=== PATIENT | female | born 1970 ===

== ENCOUNTER 2017-01-26 09:25 | Emergency (ER) | payer MEDICAID ==
[2017-01-26 09:29] VITALS: BMI 36.0
--- NOTE | 2017-01-26 09:50 | ED PDOC ---
HPI: Headache Time Seen by Provider: 01/26/17 09:33 Chief Complaint (Nursing): Headache Chief Complaint (Provider): Headache History Per: Patient History/Exam Limitations: no limitations Onset/Duration Of Symptoms: Days (Worse over 2 days) Additional Complaint(s): Patient is a 46 year old female with history of hypertension complaining of a chronic headache that has worsened over the last two days. Patient denies dizziness, chest pain, and shortness of breath. Of note, patient has not been on her blood pressure medication since July due to the loss of her insurance. PCP: none provided Past Medical History Reviewed: Historical Data, Nursing Documentation, Vital Signs Vital Signs: Last Vital Signs Temp 98 F 01/26/17 09:29 Pulse 80 01/26/17 09:29 Resp 18 01/26/17 09:29 BP 190/121 H 01/26/17 09:29 Pulse Ox 99 01/26/17 09:29 - Medical History PMH: Arthritis, Asthma, Hepatitis (B), HTN Denies: Chronic Kidney Disease - Surgical History Surgical History: Tonsillectomy - Family History Family History: States: Unknown Family Hx - Immunization History Hx Influenza Vaccination: Yes (up to date) Hx Pneumococcal Vaccination: Yes (up to date) - Home Medications Home Medications: Ambulatory Orders Medication Instructions Recorded hydroCHLOROthiazide [Microzide] 12.5 mg PO DAILY 11/21/15 Albuterol HFA [Ventolin HFA 90 2 puff IH [id number] PRN #1 bottle 12/19/15 mcg/actuation (8 g)] Albuterol HFA [Ventolin HFA 90 2 puff IH Q4H #1 puff 05/21/16 mcg/actuation (8 g)] Azithromycin [Zithromax] 250 mg PO DAILY #6 tab 05/21/16 predniSONE [predniSONE Tab] 10 mg PO TID #15 tab 05/21/16 Enalapril Maleate [Vasotec] 10 mg PO DAILY #30 tab 01/26/17 - Allergies Allergies/Adverse Reactions: Allergies Allergy/AdvReac Type Severity Reaction Status Date / Time Penicillins Allergy RASH Verified 01/26/17 09:43 Review of Systems ROS Statement: Except As Marked, All Systems Reviewed And Found Negative Cardiovascular: Negative for: Chest Pain Respiratory: Negative for: Shortness of Breath Neurological: Positive for: Headache. Negative for: Dizziness Physical Exam - Reviewed Nursing Documentation Reviewed: Yes Vital Signs Reviewed: Yes - Physical Exam Appears: Positive for: Well, Non-toxic, No Acute Distress Head Exam: Positive for: ATRAUMATIC, NORMAL INSPECTION, NORMOCEPHALIC Skin: Positive for: Normal Color, Warm, DRY Eye Exam: Positive for: EOMI, Normal appearance, PERRL ENT: Positive for: Normal ENT Inspection Neck: Positive for: Normal, Painless ROM Cardiovascular/Chest: Positive for: Regular Rate, Rhythm Respiratory: Positive for: CNT, Normal Breath Sounds Gastrointestinal/Abdominal: Positive for: Normal Exam, Bowel Sounds, Soft. Negative for: Tenderness Extremity: Positive for: Normal ROM Neurologic/Psych: Positive for: Alert, Oriented - ECG O2 Sat by Pulse Oximetry: 99 (RA) Pulse Ox Interpretation: Normal Medical Decision Making Medical Decision Making: Initial Plan: * ECG * Urinalysis * urine * Clonidine 0.2 mg PO * reevaluation Scribe Attestation: Documented by Isela Thomas, acting as a scribe for Iraj Rand MD. Provider Scribe Attestation: All medical record entries made by the Scribe were at my direction and personally dictated by me. I have reviewed the chart and agree that the record accurately reflects my personal performance of the history, physical exam, medical decision making, and the department course for this patient. I have also personally directed, reviewed, and agree with the discharge instructions and disposition. Disposition - Clinical Impression Clinical Impression: Hypertension - Patient ED Disposition Is Patient to be Admitted: No Counseled Patient/Family Regarding: Studies Performed, Diagnosis, Need For Followup, Rx Given - Disposition Referrals: [facility] [Outside] Disposition: Routine/Home Disposition Time: 11:40 Condition: FAIR Prescriptions: Enalapril Maleate [Vasotec] 10 mg PO DAILY #30 tab Instructions: Hypertension (ED) Print Language: LIBYAN
[2017-01-26 12:27] VITALS: BP 132/74; PULSE 78; RESP 19; TEMP 98.6; O2SAT 100
--- NOTE | 2017-01-27 13:52 | CARD ---
APPROVED REPORT EKG Measurement Heart [id number] ME 128P9 [id number] <Conclusion> Normal sinus rhythm Moderate voltage criteria for LVH, may be normal variant Nonspecific T wave abnormality Abnormal ECG
== END 2017-01-26 12:27 | disposition home or self-care (01) ==
LOC: H.ER 09:25
DX: I10 Essential (primary) hypertension (principal); Z88.0 Allergy status to penicillin

== ENCOUNTER 2017-03-14 10:10 | Inpatient (IN) | payer MEDICAID ==
[2017-03-14 10:14] VITALS: BMI 41.1
--- NOTE | 2017-03-14 10:54 | ED PDOC ---
HPI: General Adult Time Seen by Provider: 03/14/17 10:51 Chief Complaint (Nursing): Dizziness/Lightheaded Chief Complaint (Provider): dizzy History Per: Patient, Playground Worker (Emma Segura RN at bedside for belizean translation) Additional Complaint(s): 46-year-old female with history of hypertension presents to emergency department with dizziness and nausea that started yesterday. Patient denies vomiting or headache. She did not take her BP meds today, she states she came right to ED. No chest pain, SOB or VERDUGO. Past Medical History Reviewed: Historical Data, Nursing Documentation, Vital Signs Vital Signs: Last Vital Signs Temp 98 F 03/15/17 13:00 Pulse 90 03/15/17 13:00 Resp 18 03/15/17 13:00 BP 183/112 H 03/15/17 13:00 Pulse Ox 97 03/15/17 13:00 - Medical History PMH: Arthritis, Asthma, Hepatitis (B), HTN - Surgical History Surgical History: Tonsillectomy (and adenoids) Other surgeries: knee surgery - Family History Family History: States: No Known Family Hx - Living Arrangements Living Arrangements: With Family - Social History Current smoker - smoking cessation education provided: No Alcohol: Social Drugs: Denies - Home Medications Home Medications: Ambulatory Orders Medication Instructions Recorded Albuterol HFA [Ventolin HFA 90 2 puff IH Q4H PRN 03/14/17 mcg/actuation (8 g)] HCTZ/Losartan Potassium [Hyzaar 1 tab PO DAILY 03/14/17 12.5 mg-50 mg] - Allergies Allergies/Adverse Reactions: Allergies Allergy/AdvReac Type Severity Reaction Status Date / Time Penicillins Allergy RASH Verified 02/28/17 20:12 Review of Systems ROS Statement: Except As Marked, All Systems Reviewed And Found Negative Constitutional: Negative for: Fever, Chills Cardiovascular: Negative for: Chest Pain, Palpitations Respiratory: Negative for: Cough, SOB with Exertion Gastrointestinal: Positive for: Nausea. Negative for: Vomiting Neurological: Positive for: Dizziness. Negative for: Weakness, Numbness, Incoordination, Change in Speech, Altered Mental Status, Headache Physical Exam - Reviewed Nursing Documentation Reviewed: Yes Vital Signs Reviewed: Yes - Physical Exam Appears: Positive for: Well, Non-toxic, No Acute Distress Skin: Positive for: Normal Color. Negative for: Rash Eye Exam: Positive for: Normal appearance Cardiovascular/Chest: Positive for: Regular Rate, Rhythm Respiratory: Positive for: Normal Breath Sounds. Negative for: Respiratory Distress Extremity: Positive for: Normal ROM. Negative for: Pedal Edema Neurologic/Psych: Positive for: Alert, Oriented, Gait (steady). Negative for: Aphasia, Facial Droop - Laboratory Results Result Diagrams: 03/14/17 11:15 03/14/17 11:15 - ECG Interpretation Of ECG: NSR 82 bpm, LVH, reviewed by PA and ED attending. O2 Sat by Pulse Oximetry: 98 Pulse Ox Interpretation: Normal Medical Decision Making Medical Decision Makin46 year old with dizziness and nausea Plan: CBC BMP Trop EKG IVF IV zofran PO Losartan 50 mg, 12.5 mf HCTZ - patient's daily dose BP not improved at 196/105 after above meds given, clonidine 0.1 mg PO given. Repeat BP after clonidine persistently elevated at 196/116, 20 mg IV labatelol given. Case was d/w Dr. Quiroz, medicine community resource consultant. Patient admitted to telemetry to Dr. Quiroz's service. Disposition - Clinical Impression Clinical Impression: Uncontrolled hypertension - Patient ED Disposition Is Patient to be Admitted: Yes - Disposition Disposition Time: 14:09 Condition: FAIR - Pt Status Changed To: Hospital Disposition Of: Inpatient - Admit Certification Admit to Inpatient:: After my assessment, the patient will require hospitalization for at least two midnights. This is because of the severity of symptoms shown, intensity of services needed, and/or the medical risk in this patient being treated as an outpatient. - POA Present On Arrival: None Results - Lab Results Lab Results: 03/14/17 03/14/17 11:15 11:15 WBC 7.9 RBC 4.85 Hgb 14.1 Hct 42.9 MCV 88.5 MCH 29.1 MCHC 32.9 L RDW 15.7 H Plt Count 395 MPV 7.7 Neut % (Auto) 53.7 Lymph % (Auto) 29.8 Walsh % (Auto) 8.9 Eos % (Auto) 6.8 H Baso % (Auto) 0.8 Neut # 4.3 Lymph # 2.4 Walsh # 0.7 Eos # 0.5 Baso # 0.1 Sodium 137 Potassium 4.6 Chloride 103 Carbon Dioxide 25 Anion Gap 14 BUN 14 Creatinine 1.0 Est GFR ( Amer) > 60 Est GFR (Non-Af Amer) 59 Random Glucose 95 Calcium 9.2 Troponin I < 0.0120
[2017-03-14] MEDS ORDERED: Sodium Chloride 0.9% 1,000 ML IV STA (10:56)
[2017-03-14 11:24] LABS: BASO # 0.1 K/uL (0.0-0.2); BASO % 0.8 % (0.0-2.0); EOS # 0.5 K/uL (0.0-0.7); EOS % 6.8 % (0.0-4.0); HEMATOCRIT 42.9 % (34.0-47.0); LYMPH # 2.4 K/uL (1.0-4.3); LYMPH % 29.8 % (20.0-40.0); MEAN CELL VOLUME 88.5 fl (81.0-99.0); MEAN CORPUSCULAR HEMOGLOBIN 29.1 pg (27.0-31.0); MEAN CORPUSCULAR HGB CONC 32.9 g/dL (33.0-37.0); MEAN PLATELET VOLUME 7.7 fl (7.2-11.7); MONO # 0.7 K/uL (0.0-0.8); MONO % 8.9 % (0.0-10.0); NEUT # 4.3 K/uL (1.8-7.0); NEUT % 53.7 % (50.0-75.0); RED CELL DISTRIBUTION WIDTH 15.7 % (11.5-14.5); WHITE BLOOD COUNT 7.9 K/uL (4.8-10.8)
[2017-03-14 11:34] LABS: BLOOD UREA NITROGEN 14 mg/dl (7-17); CALCIUM 9.2 mg/dL (8.4-10.2); CARBON DIOXIDE 25 mmol/L (22-30); CHLORIDE 103 mmol/L (98-107); GFR AFRICAN-AMERICAN > 60; GLUCOSE,RANDOM 95 mg/dL (65-105); POTASSIUM 4.6 MMOL/L (3.6-5.0); SODIUM 137 mmol/l (132-148)
[2017-03-14] MEDS ORDERED: Labetalol 5 mg/ml Inj 20ML IV ONE (14:30)
--- NOTE | 2017-03-14 19:19 | CP.PCM.HP ---
Past Patient History - Infectious Disease Hx of Infectious Diseases: None - Past Medical History & Family History Past Medical History?: Yes - Past Social History Smoking Status: Never Smoked - CARDIAC Hx Cardiac Disorders: Yes - PULMONARY Hx Asthma: Yes - NEUROLOGICAL Hx Neurological Disorder: No - HEENT Hx HEENT Problems: No - RENAL Hx Chronic Kidney Disease: Yes - ENDOCRINE/METABOLIC Hx Endocrine Disorders: No - HEMATOLOGICAL/ONCOLOGICAL Hx AIDS: No Hx Hepatitis B: Yes Hx Human Immunodeficiency Virus (HIV): No - INTEGUMENTARY Hx Dermatological Problems: No - MUSCULOSKELETAL/RHEUMATOLOGICAL Hx Arthritis: Yes Hx Back Pain: Yes Hx Falls: No - GASTROINTESTINAL Hx Gastrointestinal Disorders: No - GENITOURINARY/GYNECOLOGICAL Hx Genitourinary Disorders: Yes Other/Comment: Hx Ovarian cysts - PSYCHIATRIC Hx Psychophysiologic Disorder: No Hx Substance Use: No - SURGICAL HISTORY Hx Tonsillectomy: Yes (and adenoids) - ANESTHESIA Hx Anesthesia: Yes Hx Anesthesia Reactions: No Hx Malignant Hyperthermia: No Meds Allergies/Adverse Reactions: Allergies Allergy/AdvReac Type Severity Reaction Status Date / Time Penicillins Allergy RASH Verified 02/28/17 20:12 Results - Vital Signs Recent Vital Signs: Last Vital Signs Temp 98.2 F 03/14/17 18:52 Pulse 85 03/14/17 18:52 Resp 18 03/14/17 18:52 BP 157/101 H 03/14/17 18:52 Pulse Ox 99 03/14/17 17:57 - Labs Result Diagrams: 03/14/17 11:15 03/14/17 11:15 Labs: Laboratory Results - last 24 hr 03/14/17 03/14/17 15:07 18:36 Serum HCG, Qual Negative Urine Opiates Screen Negative Urine Methadone Screen Negative Ur Barbiturates Screen Negative Ur Phencyclidine Scrn Negative Ur Amphetamines Screen Negative U Benzodiazepines Scrn Negative U Oth Cocaine Metabols Negative U Cannabinoids Screen Negative
[2017-03-14] MEDS ORDERED: Albuterol-Ipratrop 3 mg / 0.5 (3 ml) UD INH PRN (21:04)
--- NOTE | 2017-03-14 22:59 | CARD ---
APPROVED REPORT EKG Measurement Heart [id number] OR 142P8 [id number] <Conclusion> Normal sinus rhythm Minimal voltage criteria for LVH, may be normal variant Nonspecific T wave abnormality Prolonged QT Abnormal ECG
[2017-03-15] MEDS: Enoxaparin 40 mg Syringe SC SCH (09:11)
--- NOTE | 2017-03-15 23:51 | CP.PCM.PN ---
Subjective - Date & Time of Evaluation Date of Evaluation: 03/15/17 Time of Evaluation: 10:10 Objective - Vital Signs/Intake and Output Vital Signs (last 24 hours): Temp Pulse Resp BP Pulse Ox 98 F 93 H 20 167/100 H 99 03/15/17 20:23 03/15/17 21:17 03/15/17 20:23 03/15/17 21:17 03/15/17 20:23 - Medications Medications: Current Medications Albuterol/Ipratropium (Duoneb 3 Mg/0.5 Mg (3 Ml) Ud) 3 ml INH RQ6 PRN PRN Reason: Shortness of Breath Clonidine HCl (Catapres) 0.1 mg PO Q12 [facility] Last Admin: 03/15/17 21:17 Dose: 0.1 mg Enoxaparin Sodium (Lovenox) 40 mg SC DAILY TERESA PRN Reason: Protocol Last Admin: 03/15/17 09:11 Dose: 40 mg Hydrochlorothiazide (Hydrodiuril) 25 mg PO DAILY [facility] Last Admin: 03/15/17 09:11 Dose: 25 mg Losartan Potassium (Cozaar) 100 mg PO DAILY [facility] Last Admin: 03/15/17 09:10 Dose: 100 mg
[2017-03-15 23:52] VITALS: RESP 18
[2017-03-16 08:25] VITALS: BP 145/98; PULSE 79; TEMP 98.6; O2SAT 96
[2017-03-16] MEDS: Enoxaparin 40 mg Syringe SC SCH (08:52)
--- NOTE | 2017-03-16 11:29 | CP.PCM.PCO ---
Assessment/Plan - Assessment/Plan Assessment (Free Text): Pt stable, BP better controlled. Pt cleared by Dr. Quiroz for d/c home on Clonidine and to resume home BP med Hyzaar bid. Rx given - Problems Patient Problems: Problem List (Active/Current) Problem Status Onset Code Uncontrolled hypertension Acute I10
--- NOTE | 2017-03-16 23:50 | CP.PCM.DIS ---
Provider - Provider Date of Admission: 03/15/17 19:29 Attending physician: Irma Quiroz MD Time Spent in preparation of Discharge (in minutes): 30 Hospital Course - Lab Results Lab Results: Most Recent Lab Values WBC 7.9 K/uL (4.8-10.8) 03/14/17 11:15 RBC 4.85 Mil/uL (3.80-5.20) 03/14/17 11:15 Hgb 14.1 g/dL (12.0-16.0) 03/14/17 11:15 Hct 42.9 % (34.0-47.0) 03/14/17 11:15 MCV 88.5 fl (81.0-99.0) 03/14/17 11:15 MCH 29.1 pg (27.0-31.0) 03/14/17 11:15 MCHC 32.9 g/dL (33.0-37.0) L 03/14/17 11:15 RDW 15.7 % (11.5-14.5) H 03/14/17 11:15 Plt Count 395 K/uL (130-400) 03/14/17 11:15 MPV 7.7 fl (7.2-11.7) 03/14/17 11:15 Neut % (Auto) 53.7 % (50.0-75.0) 03/14/17 11:15 Lymph % (Auto) 29.8 % (20.0-40.0) 03/14/17 11:15 Caswell % (Auto) 8.9 % (0.0-10.0) 03/14/17 11:15 Eos % (Auto) 6.8 % (0.0-4.0) H 03/14/17 11:15 Baso % (Auto) 0.8 % (0.0-2.0) 03/14/17 11:15 Neut # 4.3 K/uL (1.8-7.0) 03/14/17 11:15 Lymph # 2.4 K/uL (1.0-4.3) 03/14/17 11:15 Caswell # 0.7 K/uL (0.0-0.8) 03/14/17 11:15 Eos # 0.5 K/uL (0.0-0.7) 03/14/17 11:15 Baso # 0.1 K/uL (0.0-0.2) 03/14/17 11:15 Sodium 137 mmol/l (132-148) 03/14/17 11:15 Potassium 4.6 MMOL/L (3.6-5.0) 03/14/17 11:15 Chloride 103 mmol/L (98-107) 03/14/17 11:15 Carbon Dioxide 25 mmol/L (22-30) 03/14/17 11:15 Anion Gap 14 (10-20) 03/14/17 11:15 BUN 14 mg/dl (7-17) 03/14/17 11:15 Creatinine 1.0 mg/dL (0.7-1.2) 03/14/17 11:15 Est GFR ( Amer) > 60 03/14/17 11:15 Est GFR (Non-Af Amer) 59 03/14/17 11:15 Random Glucose 95 mg/dL (65-105) 03/14/17 11:15 Calcium 9.2 mg/dL (8.4-10.2) 03/14/17 11:15 Troponin I < 0.0120 ng/mL (0.00-0.120) 03/14/17 11:15 Serum HCG, Qual Negative (NEGATIVE) 03/14/17 18:36 Urine Opiates Screen Negative (NEGATIVE) 03/14/17 15:07 Urine Methadone Screen Negative (NEGATIVE) 03/14/17 15:07 Ur Barbiturates Screen Negative (NEGATIVE) 03/14/17 15:07 Ur Phencyclidine Scrn Negative (NEGATIVE) 03/14/17 15:07 Ur Amphetamines Screen Negative (NEGATIVE) 03/14/17 15:07 U Benzodiazepines Scrn Negative (NEGATIVE) 03/14/17 15:07 U Oth Cocaine Metabols Negative (NEGATIVE) 03/14/17 15:07 U Cannabinoids Screen Negative (NEGATIVE) 03/14/17 15:07 Discharge Plan - Discharge Medications Prescriptions: cloNIDine [Catapres] 0.1 mg PO Q12 #30 tab HCTZ/Losartan Potassium [Hyzaar 12.5 mg-50 mg] 1 tab PO BID #60 - Follow Up Plan Condition: FAIR Disposition: HOME/ ROUTINE Instructions: Hypertension (DC), Hypertension (GEN)
== END 2017-03-16 12:39 | disposition home or self-care (01) | DRG 316 ==
LOC: H.ER 10:10 → H.ERHOLD 14:54 → H.TEL 17:42 → OBSVTOIN 03-15 19:29
PROVIDERS: ADMIT Internal Medicine; ATTEND Internal Medicine
DX: I12.9 Hypertensive chronic kidney disease with stage 1 through stage 4 chronic kidney disease, or unspecified chronic kidney disease (principal); B19.10 Unspecified viral hepatitis B without hepatic coma; N18.9 Chronic kidney disease, unspecified; J45.909 Unspecified asthma, uncomplicated; M19.90 Unspecified osteoarthritis, unspecified site

== ENCOUNTER 2017-04-14 16:00 | Inpatient (IN) | payer MEDICAID ==
[2017-04-14 16:01] VITALS: BMI 41.1
--- NOTE | 2017-04-14 16:36 | ED PDOC ---
HPI: General Adult Time Seen by Provider: 04/14/17 16:00 Chief Complaint (Nursing): Shortness Of Breath Chief Complaint (Provider): Chest pressure History Per: Patient History/Exam Limitations: no limitations Current Symptoms Are (Timing): Still Present Additional Complaint(s): 46 y/o female presents to the emergency department with a complaint of left- sided chest pressure, left shoulder pain, and left arm pain after bus door closed on her 2 days ago around 9am. Patient visited on 2016 after the incident but had to leave because she left stove on in her apartment. Reports she came to our facility today because symptoms became worse. Denies any further medical complaints. PMD: Dr. Danitza Chi MD Past Medical History Reviewed: Historical Data, Nursing Documentation, Vital Signs Vital Signs: Last Vital Signs Temp 97.9 F 04/14/17 16:10 Pulse 68 04/14/17 17:40 Resp 16 04/14/17 17:07 BP 191/110 H 04/14/17 17:40 Pulse Ox 100 04/14/17 18:17 - Medical History PMH: Arthritis, Asthma, Hepatitis (B), HTN Denies: HIV, Chronic Kidney Disease - Surgical History Surgical History: Tonsillectomy (and adenoids) - Family History Family History: States: Unknown Family Hx - Immunization History Hx Tetanus Toxoid Vaccination: No Hx Influenza Vaccination: Yes (up to date) Hx Pneumococcal Vaccination: No - Home Medications Home Medications: Ambulatory Orders Medication Instructions Recorded Albuterol HFA [Ventolin HFA 90 2 puff IH Q4H PRN 03/14/17 mcg/actuation (8 g)] HCTZ/Losartan Potassium [Hyzaar 1 tab PO BID #60 03/16/17 12.5 mg-50 mg] cloNIDine [Catapres] 0.1 mg PO Q12 #30 tab 03/16/17 Ibuprofen [Motrin] 600 mg PO Q6H PRN #20 tab 04/14/17 - Allergies Allergies/Adverse Reactions: Allergies Allergy/AdvReac Type Severity Reaction Status Date / Time Penicillins Allergy RASH Verified 04/12/17 14:03 Review of Systems ROS Statement: Except As Marked, All Systems Reviewed And Found Negative Cardiovascular: Positive for: Other (Left sided chest pressure) Musculoskeletal: Positive for: Shoulder Pain (Left), Arm Pain (Left) Physical Exam - Reviewed Nursing Documentation Reviewed: Yes Vital Signs Reviewed: Yes - Physical Exam Appears: Positive for: Non-toxic, No Acute Distress Head Exam: Positive for: ATRAUMATIC, NORMAL INSPECTION, NORMOCEPHALIC Skin: Positive for: Normal Color, Warm, Dry Cardiovascular/Chest: Positive for: Regular Rate, Rhythm, Other (Minimal chest wall tenderness to the left side. Tenderness to the left shoulder). Negative for: Chest Non Tender, Murmur Respiratory: Positive for: Normal Breath Sounds. Negative for: Accessory Muscle Use, Respiratory Distress Extremity: Positive for: Normal ROM (FULL rom of the elbow), Other (Healing ecchymosis to the left posterior forearm.). Negative for: Deformity Neurologic/Psych: Positive for: Alert, Oriented (x3) - Laboratory Results Result Diagrams: 04/14/17 17:08 04/14/17 17:08 - ECG Interpretation Of ECG: NSR @ 70, LVH, nonspecific T wave abnormality. O2 Sat by Pulse Oximetry: 100 (RA) Pulse Ox Interpretation: Normal - Radiology X-Ray: Interpreted by Me X-Ray Interpretation: No Acute Disease - Progress Re-evaluation Time: 18:10 (9u) Condition: Unchanged Medical Decision Making Medical Decision Making: Time: 16:30 Initial Impression: Chest pressure, shoulder and arm pain Initial Plan: --EKG --CMP --Troponin I --Urine DIP & Preg --CBC w/ diff --Chest x-ray --Catapres 0.1 mg PO --Cozaar 50 mg PO --Reevaluation Time: 1818 Chest x-ray FINDINGS: LUNGS: No active pulmonary disease. PLEURA: No significant pleural effusion identified. No pneumothorax apparent. CARDIOVASCULAR: Normal. OSSEOUS STRUCTURES: No significant abnormalities. VISUALIZED UPPER ABDOMEN: Normal. OTHER FINDINGS: None. IMPRESSION: No interval acute cardiopulmonary disease appreciated. Scribe Attestation: Documented by Alisa Curtis, acting as a scribe for Pamela Guzman MD. Provider Scribe Attestation: All medical record entries made by the Scribe were at my direction and personally dictated by me. I have reviewed the chart and agree that the record accurately reflects my personal performance of the history, physical exam, medical decision making, and the department course for this patient. I have also personally directed, reviewed, and agree with the discharge instructions and disposition. Disposition - Clinical Impression Clinical Impression: Chest pain, Accelerated hypertension - Patient ED Disposition Is Patient to be Admitted: Yes - Disposition Referrals: Danitza Marshall MD [Family Provider] - Disposition Time: 18:17 Condition: STABLE Prescriptions: Ibuprofen [Motrin] 600 mg PO Q6H PRN #20 tab PRN Reason: Pain, Moderate (4-7) Print Language: ROMANIAN - Pt Status Changed To: Hospital Disposition Of: Observation - POA Present On Arrival: Falls Or Trauma
[2017-04-14 17:18] LABS: BASO # 0.1 K/uL (0.0-0.2); BASO % 0.6 % (0.0-2.0); EOS # 0.3 K/uL (0.0-0.7); EOS % 3.3 % (0.0-4.0); HEMATOCRIT 43.2 % (34.0-47.0); LYMPH # 2.6 K/uL (1.0-4.3); LYMPH % 28.2 % (20.0-40.0); MEAN CELL VOLUME 88.3 fl (81.0-99.0); MEAN CORPUSCULAR HEMOGLOBIN 28.6 pg (27.0-31.0); MEAN CORPUSCULAR HGB CONC 32.4 g/dL (33.0-37.0); MEAN PLATELET VOLUME 7.9 fl (7.2-11.7); MONO # 0.8 K/uL (0.0-0.8); MONO % 8.8 % (0.0-10.0); NEUT # 5.5 K/uL (1.8-7.0); NEUT % 59.1 % (50.0-75.0); NRBC % 0.1 % (0.0-0.0); RED CELL DISTRIBUTION WIDTH 15.8 % (11.5-14.5); WHITE BLOOD COUNT 9.2 K/uL (4.8-10.8)
[2017-04-14 17:20] LABS: ALB/GLOB RATIO 1.1 (1.0-2.1); ALKALINE PHOSPHATASE 110 U/L (38-126); ALT/SGPT 26 U/L (9-52); AST/SGOT 25 U/L (14-36); BILIRUBIN,TOTAL 0.9 mg/dl (0.2-1.3); BLOOD UREA NITROGEN 16 mg/dl (7-17); CALCIUM 9.5 mg/dL (8.4-10.2); CARBON DIOXIDE 22 mmol/L (22-30); CHLORIDE 103 mmol/L (98-107); GFR AFRICAN-AMERICAN > 60; GLUCOSE,RANDOM 92 mg/dL (65-105); POTASSIUM 4.4 MMOL/L (3.6-5.0); SODIUM 141 mmol/l (132-148); TOTAL PROTEIN 8.2 G/DL (6.3-8.2)
--- NOTE | 2017-04-14 18:20 | RAD ---
HISTORY: Chest wall pain COMPARISON: Chest radiographs 05/21/2016. TECHNIQUE: Chest PA and lateral FINDINGS: LUNGS: No active pulmonary disease. PLEURA: No significant pleural effusion identified. No pneumothorax apparent. CARDIOVASCULAR: Normal. OSSEOUS STRUCTURES: No significant abnormalities. VISUALIZED UPPER ABDOMEN: Normal. OTHER FINDINGS: None. IMPRESSION: No interval acute cardiopulmonary disease appreciated.
[2017-04-15] MEDS: Enoxaparin 40 mg Syringe SC SCH ×2 (09:04→09:07)
[2017-04-15 09:49] LABS: THYROID STIMULATING HORMONE 3.64 mIU/ML (0.46-4.68)
[2017-04-15 23:36] VITALS: RESP 18
--- NOTE | 2017-04-16 01:40 | HP ---
CHIEF COMPLAINT: Chest pain and shortness of breath. HISTORY OF PRESENT ILLNESS: This is a 46-year-old female, known case of hypertension, hepatitis B, asthma, arthritis, who is having chest pressure and shortness of breath, so patient was brought to the emergency room and was admitted for further management. Review of systems is positive for chest pressure and left upper extremity pain secondary to trauma from door closing on her left arm few days ago, for which patient went to the emergency room at [facility] and was discharged and patient actually signed herself out as the patient had left stove in her house on and the patient's symptom continued then got worse, so patient was brought to the emergency room and was admitted for further management. PAST MEDICAL HISTORY: Significant for hypertension, hepatitis B, asthma and arthritis. PAST SURGICAL HISTORY: Remarkable for tonsillectomy. PERSONAL HISTORY: Patient is currently nonsmoker, nondrinker, no substance abuse. MEDICATION: Patient is on multiple medications, which is as per reconciliation sheet, which was reviewed and ordered. ALLERGIES: The patient is not allergic to any medications. FAMILY HISTORY: Noncontributory. REVIEW OF SYSTEMS: Positive for chest pressure and left upper extremity pain. Review of systems otherwise is negative for headache, dizziness, syncope, loss of consciousness, nausea, vomiting, diarrhea, constipation, any knee joint or extremity pain other than the ones described in the history of present illness. Review of systems of all other organ system is unremarkable. PHYSICAL EXAMINATION: GENERAL: Well-built and well-nourished, 46-year-old female, in no acute distress. VITAL SIGNS: Temperature 97.4, pulse 67, respirations 18, blood pressure 142/80. HEENT: Pupils are reacting to light. Normocephalic and atraumatic skull. NECK: No JVD. No thyromegaly. No lymphadenopathy. No nystagmus. HEART: S1 and S2, normal and regular. No significant murmur, gallop or rub is heard. LUNGS: Shows good bilateral air exchange. No rales or rhonchi. ABDOMEN: Soft and nontender. No organomegaly. No fluid. Bowel sounds are present. EXTREMITIES: No edema. No calf swelling. No tenderness. No acute ischemia. Patient has a superficial bruise on left upper extremity without any distal neurovascular compromise. CENTRAL NERVOUS SYSTEM: Exam is essentially unchanged. There is no sign of any acute gross focal motor or sensory neurological deficit. DIAGNOSTIC DATA: Available diagnostic data reviewed. WBC 9.2, hemoglobin 14, hematocrit 43.2, platelets 385. Sodium 141, potassium 4.4, chloride 103, bicarbonate 22, BUN 16, creatinine 0.9. SMA-12 is unremarkable. Cardiac profile 2 sets are negative. Chest x-ray is clear. EKG does not reveal any acute ST-T changes. ADMITTING IMPRESSION: Chest pain, rule out acute coronary syndrome; left upper extremity pain from trauma; arthritis; hepatitis B; and hypertension. PLAN: As ordered. Case and plan discussed with the patient. Yohan Leblanc MD
[2017-04-16 05:13] VITALS: TEMP 97.8
[2017-04-16 05:21] LABS: HEMATOCRIT 44.2 % (34.0-47.0); MEAN CELL VOLUME 87.9 fl (81.0-99.0); MEAN CORPUSCULAR HEMOGLOBIN 28.6 pg (27.0-31.0); MEAN CORPUSCULAR HGB CONC 32.5 g/dL (33.0-37.0); RED CELL DISTRIBUTION WIDTH 15.4 % (11.5-14.5); WHITE BLOOD COUNT 6.5 K/uL (4.8-10.8)
[2017-04-16 05:32] LABS: ALB/GLOB RATIO 1.2 (1.0-2.1); ALKALINE PHOSPHATASE 108 U/L (38-126); ALT/SGPT 28 U/L (9-52); AST/SGOT 31 U/L (14-36); BILIRUBIN,TOTAL 0.9 mg/dl (0.2-1.3); BLOOD UREA NITROGEN 14 mg/dl (7-17); CALCIUM 9.5 mg/dL (8.4-10.2); CARBON DIOXIDE 23 mmol/L (22-30); CHLORIDE 105 mmol/L (98-107); GFR AFRICAN-AMERICAN > 60; GLUCOSE,RANDOM 104 mg/dL (65-105); SODIUM 141 mmol/l (132-148); TOTAL PROTEIN 7.7 G/DL (6.3-8.2)
[2017-04-16 07:49] VITALS: BP 167/94; PULSE 71; O2SAT 100
--- NOTE | 2017-04-16 08:17 | CARD ---
APPROVED REPORT EKG Measurement Heart [id number] CT 134P11 [id number] <Conclusion> Normal sinus rhythm Moderate voltage criteria for LVH, may be normal variant Nonspecific T wave abnormality Abnormal ECG
--- NOTE | 2017-04-16 09:18 | CP.PCM.CON ---
History of Present Illness - History of Present Illness History of Present Illness: This 46-year- old overweight female with a history of hypertension for more than 3 years came to the emergency room complaining of left arm ache for 3-4 days and headaches. The patient had recently gone to the emergency room at [facility] complaining of left arm ache which she had injured at home that day. She has had numerous visits to the emergency room here and at [facility] over the last 12 months. She reports that she has had significant arthritis and takes multiple medications for arthritis as well. She cannot name them. She is not a smoker and has never experienced any effort related chest pain. She is not a diabetic and has no symptoms of congestive cardiac failure. The patient though admits that she eats foods that contain excessive amount of salt as a preservative. Physical examination shows a middle aged pleasant female who is resting comfortably in bed in no distress. Has a heart rate of 74 bpm and regular and a blood pressure of 160/100 mmHg. Her jugular venous pressure was not elevated. There was no edema over the lower extremity. Her pedal pulses were well felt. There were no carotid bruits. Thyroid and breast did not reveal anything abnormal. They prefer the palpable the first and second heart sound are normal. There was no murmur. No gallop. No rales. Abdomen was soft liver and spleen are not palpable. Her electrocardiogram shows sinus rhythm with a pattern of left ventricular hypertrophy. There were ST-T changes secondary to left ventricular hypertrophy. Review of electrocardiograms over last year were reviewed and none of them showed any ischemic pattern. Labs were noted. IMPRESSION: Hypertension. I started the patient on an ELVIRA inhibitor and hydrochlorothiazide along with amlodipine which she was taking. I have asked for urinalysis to evaluate her for possible proteinuria and I have requested lipid panel to fully evaluate her vascular risk. I have also explained no salt diet to her. Past Patient History - Infectious Disease Hx of Infectious Diseases: None - Past Medical History & Family History Past Medical History?: Yes - Past Social History Smoking Status: Never Smoked - CARDIAC Hx Cardiac Disorders: Yes Hx Hypertension: Yes - PULMONARY Hx Respiratory Disorders: Yes Hx Asthma: Yes - NEUROLOGICAL Hx Neurological Disorder: No - HEENT Hx HEENT Problems: No - RENAL Hx Chronic Kidney Disease: No - ENDOCRINE/METABOLIC Hx Endocrine Disorders: No - HEMATOLOGICAL/ONCOLOGICAL Hx Blood Disorders: Yes Hx Hepatitis B: Yes Hx Human Immunodeficiency Virus (HIV): No - INTEGUMENTARY Hx Dermatological Problems: No - MUSCULOSKELETAL/RHEUMATOLOGICAL Hx Musculoskeletal Disorders: No Hx Falls: No - GASTROINTESTINAL Hx Gastrointestinal Disorders: No - GENITOURINARY/GYNECOLOGICAL Hx Genitourinary Disorders: Yes Other/Comment: Hx Ovarian cysts - PSYCHIATRIC Hx Psychophysiologic Disorder: No Hx Substance Use: No - SURGICAL HISTORY Hx Surgeries: Yes Hx Tonsillectomy: Yes (and adenoids) - ANESTHESIA Hx Anesthesia: Yes Hx Anesthesia Reactions: No Hx Malignant Hyperthermia: No Meds Allergies/Adverse Reactions: Allergies Allergy/AdvReac Type Severity Reaction Status Date / Time Penicillins Allergy RASH Verified 04/12/17 14:03 - Medications Medications: Current Medications Acetaminophen (Tylenol 325mg Tab) 650 mg PO Q6 PRN PRN Reason: Pain, moderate (4-7) Amlodipine Besylate (Norvasc) 10 mg PO DAILY [facility] Atorvastatin Calcium (Lipitor) 20 mg PO DAILY [facility] Cyanocobalamin (Vitamin B12 1000 Mcg/Ml Inj) 1,000 mcg IM DAILY [facility] Enoxaparin Sodium (Lovenox) 40 mg SC DAILY [facility] PRN Reason: Protocol Last Admin: 04/15/17 09:07 Dose: Not Given Hydrochlorothiazide (Microzide) 12.5 mg PO DAILY [facility] Lisinopril (Zestril) 20 mg PO DAILY [facility] Results - Vital Signs Recent Vital Signs: Last Vital Signs Temp 97.8 F 04/16/17 07:48 Pulse 71 04/16/17 07:48 Resp 18 04/16/17 07:48 BP 167/94 H 04/16/17 07:48 Pulse Ox 100 04/16/17 07:48 - Labs Result Diagrams: 04/16/17 04:15 04/16/17 04:15 Labs: Laboratory Results - last 24 hr 04/15/17 04/15/17 04/16/17 08:30 08:30 04:15 WBC 6.5 RBC 5.03 Hgb 14.4 Hct 44.2 MCV 87.9 MCH 28.6 MCHC 32.5 L RDW 15.4 H Plt Count 396 Sodium Potassium Chloride Carbon Dioxide Anion Gap BUN Creatinine Est GFR ( Amer) Est GFR (Non-Af Amer) Random Glucose Calcium Total Bilirubin AST ALT Alkaline Phosphatase Troponin I < 0.0120 Total Protein Albumin Globulin Albumin/Globulin Ratio Triglycerides 148 Cholesterol 200 H LDL Cholesterol Direct 139 H HDL Cholesterol 33 Vitamin B12 176 L TSH 3rd Generation 3.64 04/16/17 04:15 WBC RBC Hgb Hct MCV MCH MCHC RDW Plt Count Sodium 141 Potassium 4.0 Chloride 105 Carbon Dioxide 23 Anion Gap 17 BUN 14 Creatinine 0.9 Est GFR ( Amer) > 60 Est GFR (Non-Af Amer) > 60 Random Glucose 104 Calcium 9.5 Total Bilirubin 0.9 AST 31 ALT 28 Alkaline Phosphatase 108 Troponin I Total Protein 7.7 Albumin 4.1 Globulin 3.6 Albumin/Globulin Ratio 1.2 Triglycerides Cholesterol LDL Cholesterol Direct HDL Cholesterol Vitamin B12 TSH 3rd Generation
[2017-04-16] MEDS: Enoxaparin 40 mg Syringe SC SCH (09:32)
[2017-04-16 10:37] LABS: CHOLESTEROL 202 mg/dL (0-199)
[2017-04-16 11:56] LABS: RBC URINE 3 /hpf (0-3); URINE BILIRUBIN NEGATIVE (NEGATIVE); URINE BLOOD NEGATIVE (NEGATIVE); URINE COLOR YELLOW (YELLOW); URINE GLUCOSE (UA) NEG (Normal); URINE KETONE NEGATIVE (NEGATIVE); URINE LEUKOCYTE ESTERASE NEG Leu/uL (Negative); URINE PROTEIN NEGATIVE (NEGATIVE); URINE UROBILINOGEN 0.2-1.0 mg/dL (0.2-1.0); WBC URINE < 1 /hpf (0-5)
--- NOTE | 2017-04-16 13:11 | PN ---
DATE: 04/16/2017 SUBJECTIVE: The patient is seen and examined. Interim events noted. Consult is pending. The patient feels okay. Denies any specific complaint of chest pain. No shortness of breath. Vomiting is much better. PHYSICAL EXAMINATION GENERAL: The patient is in no acute distress. VITAL SIGNS: Stable. HEART: S1 and S2, normal and regular. LUNGS: Good bilateral air exchange. ABDOMEN: Soft, nontender. EXTREMITIES: The patient has left upper extremity bruise, which is healing. No sign of acute distal complication. No tenderness. CENTRAL NERVOUS SYSTEM: Essentially unchanged. DIAGNOSTIC DATA: Available diagnostic data reviewed. ASSESSMENT AND PLAN: Overall, the patient's general medical condition is stable. Plan as ordered. Yohan Leblanc MD
--- NOTE | 2017-04-16 13:54 | PQF GENQUE ---
This form is a permanent part of the medical record 04/16/17 Dr. Leblanc, 1) Would you please clarify if there is an associated diagnosis to go along with the elevated BMI or not. 2) Please document the BMI. EMR has the patient listed as being 5' 5" , weighing 248 pounds with a BMI of 41.3. [employer] has documented Overweight. Clarification of your documentation is requested to better reflect the severity of illness and intensity of treatment of your patient. Indicators present [] Specify: [] [] Specify: [] [] Specify: [] [] Specify: [] Location in the medical record that reflects the above clinical findings: [] Treatment Provided: [] PHYSICIAN'S RESPONSE Based on your medical judgment of the clinical indicators outlined above please clarify the following: [] Practitioner response [] If unable to determine, please check the box, sign and date. Present On Admission (POA) Indicator: [] Present at the time of admission [] Not present at the time of admission [] Clinically Undetermined In responding to this query, please exercise your independent professional judgment. The fact that a question is asked does not imply that any particular answer is desired or expected. Thank you for your clarification on this documentation. If you have any questions please call:ext [phone] * Thank you, Leena Schilling RN [facility]
--- NOTE | 2017-04-16 14:00 | PQF GENQUE ---
This form is a permanent part of the medical record 04/16/17 Dr. Leblanc, Documentation of a history of Asthma. Please clarify the type of Asthma if known. Clarification of your documentation is requested to better reflect the severity of illness and intensity of treatment of your patient. Indicators present [] Specify: [] [] Specify: [] [] Specify: [] [] Specify: [] Location in the medical record that reflects the above clinical findings: [] Treatment Provided: [] PHYSICIAN'S RESPONSE . Please clarify type of asthma if known [] Childhood [] Cough variant [] Exercise induced [] Late onset [] Mild intermittent [] Mild persistent [] Moderate persistent [] Severe persistent [] With bronchitis(please clarify acuity of bronchitis) [] With chronic lung disease (please document specific chronic lung disease ) [] Other (please specify) [] Clinically unable to determine [] Unknown Based on your medical judgment of the clinical indicators outlined above please clarify the following: [] Practitioner response [] If unable to determine, please check the box, sign and date. Present On Admission (POA) Indicator: [] Present at the time of admission [] Not present at the time of admission [] Clinically Undetermined In responding to this query, please exercise your independent professional judgment. The fact that a question is asked does not imply that any particular answer is desired or expected. Thank you for your clarification on this documentation. If you have any questions please call:ext [phone] * Thank you, Leena Schilling RN CDMP [facility]
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
== END 2017-04-16 14:10 | disposition left against medical advice (07) | DRG 143 ==
LOC: H.ER 16:00 → OBSVTOIN 18:28 → H.ERHOLD 18:28 → H.TEL 20:23
PROVIDERS: ADMIT Internal Medicine; ATTEND Internal Medicine
DX: R07.89 Other chest pain (principal); B19.10 Unspecified viral hepatitis B without hepatic coma; I10 Essential (primary) hypertension; Z68.41 Body mass index [BMI] 40.0-44.9, adult; E66.01 Morbid (severe) obesity due to excess calories; J45.20 Mild intermittent asthma, uncomplicated; M19.90 Unspecified osteoarthritis, unspecified site; Z88.0 Allergy status to penicillin

== ENCOUNTER 2017-12-07 15:50 | Emergency (ER) | payer MEDICAID ==
[2017-12-07 15:50] VITALS: BMI 41.1
[2017-12-07 16:14] VITALS: RESP 20; TEMP 98.2
[2017-12-07 17:44] VITALS: O2SAT 98
--- NOTE | 2017-12-07 18:05 | ED PDOC ---
HPI: Headache Time Seen by Provider: 12/07/17 16:57 Chief Complaint (Nursing): Headache Chief Complaint (Provider): Headache and Hypertension History/Exam Limitations: no limitations Onset/Duration Of Symptoms: Days (one) Current Symptoms Are (Timing): Still Present Severity: Mild Quality: Sharp Preceeding Symptoms: None Associated Symptoms: denies: Photophobia, Blurred Vision, Nausea, Vomiting, Extremity Weakness Past Medical History Reviewed: Historical Data, Nursing Documentation, Vital Signs Vital Signs: Last Vital Signs Temp 98.2 F 12/07/17 16:10 Pulse 90 12/07/17 17:43 Resp 20 12/07/17 16:10 BP 194/113 H 12/07/17 17:43 Pulse Ox 98 12/07/17 17:43 - Medical History PMH: Arthritis, Asthma, Hepatitis (B), HTN Denies: HIV, Chronic Kidney Disease - Surgical History Surgical History: Tonsillectomy (and adenoids) - Family History Family History: States: Unknown Family Hx - Immunization History Hx Tetanus Toxoid Vaccination: No Hx Influenza Vaccination: Yes (up to date) Hx Pneumococcal Vaccination: No - Home Medications Home Medications: Ambulatory Orders Medication Instructions Recorded Atorvastatin [Lipitor] 20 mg PO DAILY #30 tab 04/16/17 Cyanocobalamin [Vitamin B12 1000 1,000 mcg IM DAILY #0 vial 04/16/17 mcg/ml Inj] Lisinopril [Zestril] 20 mg PO DAILY #30 tab 04/16/17 amLODIPine [Norvasc] 10 mg PO DAILY #30 tab 04/16/17 hydroCHLOROthiazide [Microzide] 12.5 mg PO DAILY #30 cap 04/16/17 - Allergies Allergies/Adverse Reactions: Allergies Allergy/AdvReac Type Severity Reaction Status Date / Time Penicillins Allergy RASH Verified 12/07/17 16:09 Review of Systems ROS Statement: Except As Marked, All Systems Reviewed And Found Negative Constitutional: Negative for: Fever Neurological: Positive for: Headache Physical Exam - Reviewed Nursing Documentation Reviewed: Yes Vital Signs Reviewed: Yes - Physical Exam Appears: Positive for: Well, No Acute Distress. Negative for: Non-toxic Head Exam: Positive for: ATRAUMATIC, NORMAL INSPECTION, NORMOCEPHALIC Skin: Positive for: Normal Color, Warm, Dry Eye Exam: Positive for: Normal appearance, PERRL. Negative for: Nystagmus, Periorbital swelling, Periorbital tenderness Neck: Positive for: Normal, Painless ROM, Supple. Negative for: Decreased ROM Cardiovascular/Chest: Positive for: Regular Rate, Rhythm. Negative for: Edema, Murmur, Bradycardia, Tachycardia Respiratory: Positive for: Normal Breath Sounds. Negative for: Crackles, Rales , Rhonchi, Wheezing, Respiratory Distress Pulses-Carotid (L): 2+ Pulses-Carotid (R): 2+ Pulses-Radial (L): 2+ Pulses-Radial (R): 2+ - Laboratory Results Result Diagrams: 12/07/17 19:31 12/07/17 19:31 - ECG O2 Sat by Pulse Oximetry: 98 Disposition - Clinical Impression Clinical Impression: Chronic headache, Chronic headache disorder - Patient ED Disposition Is Patient to be Admitted: No Doctor Will See Patient In The: Hospital Counseled Patient/Family Regarding: Studies Performed, Diagnosis, Need For Followup - Disposition Disposition: Routine/Home Disposition Time: 21:07 Condition: GOOD Instructions: Headache, Adult, Migraine Headaches in Adults Forms: [facility] ([employer])
[2017-12-07] MEDS ORDERED: Metoprolol 1 mg/ml Inj IVP ONE ×2 (18:06→20:02)
[2017-12-07 19:38] LABS: BASO # 0.1 K/uL (0.0-0.2); BASO % 1.2 % (0.0-2.0); EOS # 0.3 K/uL (0.0-0.7); EOS % 3.1 % (0.0-4.0); LYMPH # 2.5 K/uL (1.0-4.3); LYMPH % 27.7 % (20.0-40.0); MEAN CORPUSCULAR HEMOGLOBIN 27.4 pg (27.0-31.0); MEAN CORPUSCULAR HGB CONC 32.4 g/dL (33.0-37.0); MEAN PLATELET VOLUME 8.5 fl (7.2-11.7); MONO # 0.6 K/uL (0.0-0.8); MONO % 6.6 % (0.0-10.0); NEUT # 5.5 K/uL (1.8-7.0); NEUT % 61.4 % (50.0-75.0); NRBC % 0.1 % (0.0-0.0); RBC 4.76 Mil/uL (3.80-5.20); RED CELL DISTRIBUTION WIDTH 16.5 % (11.5-14.5)
[2017-12-07 19:39] LABS: MEAN CELL VOLUME 84.4 fl (81.0-99.0)
[2017-12-07 19:47] LABS: ALB/GLOB RATIO 1.1 (1.0-2.1); ALBUMIN 4.1 g/dL (3.5-5.0); ALT/SGPT 32 U/L (9-52); AST/SGOT 30 U/L (14-36); BLOOD UREA NITROGEN 11 mg/dl (7-17); CALCIUM 9.2 mg/dL (8.4-10.2); GFR AFRICAN-AMERICAN > 60; GFR NON-AFRICAN AMERICAN 59
[2017-12-07 19:55] LABS: SQUAMOUS EPITHIAL 3 /hpf (0-5); URINE BACTERIA RARE (<OCC); URINE BILIRUBIN NEGATIVE (NEGATIVE); URINE BLOOD NEGATIVE (NEGATIVE); URINE CLARITY SLIGHTY-CLOUDY (Clear); URINE COLOR YELLOW (YELLOW); URINE GLUCOSE (UA) NEG (Normal); URINE HYALINE CAST 0-2 /hpf (0-2); URINE LEUKOCYTE ESTERASE NEG Leu/uL (Negative); URINE PROTEIN NEGATIVE (NEGATIVE); URINE UROBILINOGEN 0.2-1.0 mg/dL (0.2-1.0)
[2017-12-08 00:32] VITALS: BP 179/86; PULSE 72
--- NOTE | 2017-12-08 10:55 | CARD ---
APPROVED REPORT EKG Measurement Heart [id number] <Conclusion> Normal sinus rhythm Possible Left atrial enlargement Left ventricular hypertrophy with repolarization abnormality Abnormal ECG
== END 2017-12-07 21:40 | disposition home or self-care (01) ==
LOC: H.ER 15:50
DX: R51 Headache (principal); I10 Essential (primary) hypertension; G89.29 Other chronic pain; J45.909 Unspecified asthma, uncomplicated; Z88.0 Allergy status to penicillin

== ENCOUNTER 2018-03-02 12:57 | Emergency (ER) | payer MEDICAID ==
[2018-03-02 12:57] VITALS: BMI 41.1
[2018-03-02 13:01] VITALS: TEMP 98.3
[2018-03-02 14:35] LABS: BASO # 0.1 K/uL (0.0-0.2); BASO % 1.1 % (0.0-2.0); EOS # 0.3 K/uL (0.0-0.7); EOS % 3.2 % (0.0-4.0); HEMOGLOBIN 12.9 g/dL (12.0-16.0); LYMPH # 2.8 K/uL (1.0-4.3); LYMPH % 26.6 % (20.0-40.0); MEAN CELL VOLUME 85.7 fl (81.0-99.0); MEAN CORPUSCULAR HEMOGLOBIN 27.6 pg (27.0-31.0); MEAN CORPUSCULAR HGB CONC 32.2 g/dL (33.0-37.0); MEAN PLATELET VOLUME 7.8 fl (7.2-11.7); MONO # 0.9 K/uL (0.0-0.8); MONO % 8.2 % (0.0-10.0); NEUT # 6.5 K/uL (1.8-7.0); NEUT % 60.9 % (50.0-75.0); NRBC % 0.1 % (0.0-0.0); RBC 4.67 Mil/uL (3.80-5.20); RED CELL DISTRIBUTION WIDTH 17.6 % (11.5-14.5); WHITE BLOOD COUNT 10.7 K/uL (4.8-10.8)
[2018-03-02 14:45] LABS: BLOOD UREA NITROGEN 11 mg/dl (7-17); GFR AFRICAN-AMERICAN > 60; GFR NON-AFRICAN AMERICAN 59
--- NOTE | 2018-03-02 15:38 | ED PDOC ---
HPI: Hypertension/Hypotension Time Seen by Provider: 03/02/18 13:15 Chief Complaint (Nursing): High Blood Pressure Chief Complaint (Provider): High Blood Pressure History Per: Patient History/Exam Limitations: no limitations Onset/Duration Of Symptoms: Days (x1) Current Symptoms Are (Timing): Still Present Additional Complaint(s): 47-year-old female presenting for evaluation of high blood pressure prior to arrival. Patient states she went to see her new PMD, Dr. Figueroa, and was found to be hypertensive with a systolic BP over 200 an immediately sent to the ER. Patient denies any recent symptoms or illness. Patient states she's compliant with all medications, but cannot state what they are. Patient denies any complaints or symptoms. PMD: Dr. Figueroa Past Medical History Reviewed: Historical Data, Nursing Documentation, Vital Signs Vital Signs: Last Vital Signs Temp 98.3 F 03/02/18 12:58 Pulse 80 03/02/18 13:30 Resp 18 03/02/18 13:30 BP 196/110 H 03/02/18 13:30 Pulse Ox 99 03/02/18 13:30 - Medical History PMH: Arthritis, Asthma, Hepatitis (B), HTN Denies: HIV, Chronic Kidney Disease - Surgical History Surgical History: Tonsillectomy (and adenoids) - Family History Family History: States: Unknown Family Hx - Immunization History Hx Tetanus Toxoid Vaccination: No Hx Influenza Vaccination: Yes (up to date) Hx Pneumococcal Vaccination: No - Home Medications Home Medications: Ambulatory Orders Medication Instructions Recorded Atorvastatin [Lipitor] 20 mg PO DAILY #30 tab 04/16/17 Cyanocobalamin [Vitamin B12 1000 1,000 mcg IM DAILY #0 vial 04/16/17 mcg/ml Inj] Lisinopril [Zestril] 20 mg PO DAILY #30 tab 04/16/17 amLODIPine [Norvasc] 10 mg PO DAILY #30 tab 04/16/17 hydroCHLOROthiazide [Microzide] 12.5 mg PO DAILY #30 cap 04/16/17 - Allergies Allergies/Adverse Reactions: Allergies Allergy/AdvReac Type Severity Reaction Status Date / Time Penicillins Allergy RASH Verified 03/02/18 12:58 Review of Systems ROS Statement: Except As Marked, All Systems Reviewed And Found Negative Cardiovascular: Positive for: Other (high blood pressure). Negative for: Chest Pain, Palpitations, Light Headedness Respiratory: Negative for: Cough, Shortness of Breath Neurological: Negative for: Weakness, Numbness, Dizziness Physical Exam - Reviewed Nursing Documentation Reviewed: Yes Vital Signs Reviewed: Yes - Physical Exam Appears: Positive for: Non-toxic, No Acute Distress (obese) Head Exam: Positive for: ATRAUMATIC, NORMAL INSPECTION, NORMOCEPHALIC Skin: Positive for: Normal Color, Warm, Dry. Negative for: Rash Eye Exam: Positive for: EOMI, Normal appearance, PERRL Neck: Positive for: Normal, Painless ROM, Supple Cardiovascular/Chest: Positive for: Regular Rate, Rhythm. Negative for: Murmur Respiratory: Positive for: Normal Breath Sounds. Negative for: Respiratory Distress Gastrointestinal/Abdominal: Positive for: Normal Exam, Soft. Negative for: Tenderness Back: Positive for: Normal Inspection. Negative for: L CVA Tenderness, R CVA Tenderness, Vertebral Tenderness Extremity: Positive for: Normal ROM. Negative for: Deformity Neurologic/Psych: Positive for: Alert, Oriented (x3). Negative for: Motor/ Sensory Deficits - Laboratory Results Result Diagrams: 03/02/18 14:28 03/02/18 14:28 - ECG O2 Sat by Pulse Oximetry: 99 (RA) Pulse Ox Interpretation: Normal Medical Decision Making Medical Decision Making: Plan: Workup for primary hypertension. Will give home dose of amlodipine and Hydrochlorothiazide. Will order EKG, basic labs, and reassess. Most likely discharge home. Scribe Attestation: Documented by Aidan Clement, acting as a scribe for Mirna Delaney MD. Provider Scribe Attestation: All medical record entries made by the Scribe were at my direction and personally dictated by me. I have reviewed the chart and agree that the record accurately reflects my personal performance of the history, physical exam, medical decision making, and the department course for this patient. I have also personally directed, reviewed, and agree with the discharge instructions and disposition. Disposition - Clinical Impression Clinical Impression: Chronic hypertension - Disposition Referrals: Tianna Figueroa MD [IM] - [facility] [Outside] Disposition Time: 17:11 Condition: STABLE Additional Instructions: Follow up with primary medical doctor in 2 days for further evaluation of uncontrolled hypertension. Continue to take medications as prescibed by primary doctor. Avoid food with salt. Return to the emergency department if you develop chest pain, difficulty breathing, or other new symptoms. Instructions: High Blood Pressure in Adults, Malignant Hypertension, DASH Diet , High Blood Pressure (DC), Low Salt Diet Forms: [employer] (Congolese), [employer] (Uzbek)
[2018-03-02 17:12] VITALS: O2SAT 99
[2018-03-02 17:23] VITALS: BP 181/94; PULSE 84; RESP 18
--- NOTE | 2018-03-03 01:59 | CARD ---
APPROVED REPORT Date of service: 03/02/2018 <Conclusion> Normal sinus rhythm Possible Left atrial enlargement Left ventricular hypertrophy T wave abnormality, consider lateral ischemia Abnormal ECG
== END 2018-03-02 17:20 | disposition left against medical advice (07) ==
LOC: H.ER 12:57
DX: I10 Essential (primary) hypertension (principal); J45.909 Unspecified asthma, uncomplicated; Z88.0 Allergy status to penicillin; B19.10 Unspecified viral hepatitis B without hepatic coma